=== PATIENT | female | born 1960 | race Caucasian/White ===

== ENCOUNTER 2017-04-13 06:21 | Inpatient (IN) | payer MEDICARE, BC ==
[2017-04-13] MEDS ORDERED: Celecoxib 200 MG Cap PO ONE (06:30)
[2017-04-13] MEDS ORDERED: fentaNYL 25 MCG/HR Transdermal Patch TRDERM SCH ×2 (06:30→08:00)
[2017-04-13] MEDS ORDERED: Acetaminophen 500 MG Tab PO ONE (06:30)
[2017-04-13] MEDS ORDERED: Dextrose 5%-Lactated Ringers 1,000 ML IV SCH ×2 (07:30→15:00)
[2017-04-13] MEDS ORDERED: cefOXitin 2 GM in Sodium Chloride 0.9% 50 ML IV ONE (08:30)
[2017-04-13] MEDS ORDERED: Rocuronium 50 MG/5 ML Vial ONE ×2 (08:46→12:11)
[2017-04-13] MEDS ORDERED: Ondansetron 4 MG/2 ML SDV ONE (08:46)
[2017-04-13] MEDS ORDERED: Propofol 200 MG/20 ML SDV ONE (08:46)
[2017-04-13] MEDS ORDERED: Dexamethasone 4 MG/ML SDV ONE (08:46)
[2017-04-13] MEDS ORDERED: Glycopyrrolate 0.2 MG/ML 5 ML MDV ONE (08:46)
[2017-04-13] MEDS ORDERED: Neostigmine Methylsulfate 1 MG/ML 5 ML Syringe ONE (08:46)
[2017-04-13] MEDS ORDERED: Meropenem 500 MG SDV ONE (09:45)
[2017-04-13] MEDS ORDERED: HYDROmorphone/Normal Saline 15 MG/30 ML PCA IV PRN (09:58)
[2017-04-13] MEDS ORDERED: Naloxone 0.4 MG/ML SDV IV PRN (10:23)
[2017-04-13] MEDS: cefOXitin 2 GM in Sodium Chloride 0.9% 50 ML IV ONE ×2 (11:27→14:19)
[2017-04-13] MEDS ORDERED: Linezolid 200 MG/100 ML Bag IRR ONE (11:28)
[2017-04-13] MEDS ORDERED: Lactated Ringers 1,000 ML ONE (12:00)
[2017-04-13] MEDS ORDERED: Insulin Aspart 100 Units/ML 3 ML Pen SUBCUT SCH (13:15)
[2017-04-13] MEDS ORDERED: Ondansetron 4 MG/2 ML SDV IVPUSH ONE (13:27)
[2017-04-13] MEDS ORDERED: Glucagon,Human Recombinant 1 MG Vial IM PRN (14:46)
[2017-04-13] MEDS ORDERED: 50% Dextrose in Water 50 ML Syringe IVPUSH PRN (14:46)
[2017-04-13] MEDS ORDERED: Glucose Gel 15 GM in 37.5 GM Tube PO PRN (14:46)
[2017-04-13] MEDS ORDERED: Ondansetron 4 MG/2 ML SDV IV PRN (14:59)
[2017-04-13] MEDS: VERIFY FENT PATCH TOP SCH ×2 (15:35→21:54)
[2017-04-13] MEDS: metFORMIN 500 MG Tab PO SCH (16:48)
[2017-04-13] MEDS: ceFAZolin 2 GM in Sodium Chloride 0.9% 50 ML IV SCH ×2 (16:48→23:56)
[2017-04-13] MEDS: Lisinopril 20 MG Tab PO SCH (16:49)
[2017-04-13] MEDS: Insulin Aspart 100 Units/ML 3 ML Pen SUBCUT PRN ×2 (16:52→21:48)
[2017-04-13] MEDS: Simvastatin 20 MG Tab PO SCH (21:46)
[2017-04-14] MEDS ORDERED: Dextrose 5%-Lactated Ringers 1,000 ML IV SCH (07:14)
[2017-04-14] MEDS ORDERED: Acetaminophen/HYDROcodone 325-5 MG Tab PO PRN (07:16)
[2017-04-14] MEDS: ceFAZolin 2 GM in Sodium Chloride 0.9% 50 ML IV SCH (08:22)
--- NOTE | 2017-04-14 08:25 | PN ---
DATE OF SERVICE: 04/14/2017 SUBJECTIVE: Melani Kapadia is postop day 1. She states her pain is controlled. CHERELLE drains have put out 50 and 45 respectively. Blood sugars have been arranging 277, 254, and 242. REVIEW OF SYSTEMS: Remainder of review of systems negative for any pertinent positives or negatives. OBJECTIVE: GENERAL: Melani Kapadia is a 57-year-old female, alert, orientated. SKIN: Warm and dry. Color pale. VITAL SIGNS: TPR 96.8, 58, 14. Blood pressure 104/52. HEENT: Negative. NECK: Supple. HEART: Regular rate and rhythm. LUNGS: Clear. ABDOMEN: Reveals dressing dry and intact. Abdominal binder is on and CHERELLE drains draining 50 and 45 of a pink serous drainage. ASSESSMENT: Panniculectomy and repair of umbilical and incisional hernias for chronic panniculitis and umbilical and incisional hernias. Date of surgery 04/13/2017; surgeon, Chava Esquivel M.D. PLAN: 1. Step-4 gastric bypass diet. 2. Referral to gas meter repair supervisor for evaluation of elevated blood sugars. 3. Decrease IV rate to 100 mL per hour. 4. Saline lock IV if oral intake adequate. 5. [place] 5/325 mg 1 to 2 every 4 hours p.r.n. pain. 6. Discontinue TMR TEACHER. 7. Discontinue continuous pulse oximetry. 8. Teach CHERELLE drain to strip, drain, measure, and record. Drainage dressing off, may shower. We will evaluate p.r.n. or in the a.m. Martha Cross PA-C /[id number]
[2017-04-14] MEDS: metFORMIN 500 MG Tab PO SCH ×2 (08:36→17:42)
[2017-04-14] MEDS: FLUoxetine 20 MG Cap PO SCH (08:37)
[2017-04-14] MEDS: Insulin Aspart 100 Units/ML 3 ML Pen SUBCUT PRN ×3 (08:37→21:56)
[2017-04-14] MEDS: Lisinopril 20 MG Tab PO SCH ×2 (08:37→20:07)
[2017-04-14] MEDS: VERIFY FENT PATCH TOP SCH ×2 (08:37→20:03)
[2017-04-14] MEDS: Simvastatin 20 MG Tab PO SCH (20:04)
[2017-04-15] MEDS ORDERED: Lidocaine 1% 20 ML MDV INJECT STA (06:39)
[2017-04-15] MEDS ORDERED: Lidocaine 1% 50 ML MDV INJECT ONE (06:50)
[2017-04-15] MEDS: Bacitracin Oint 1 GM U/D Packet TOP SCH ×2 (08:11→09:59)
[2017-04-15] MEDS: metFORMIN 500 MG Tab PO SCH (08:11)
[2017-04-15] MEDS ORDERED: Lidocaine 1% 20 ML MDV INJECT ONE (08:45)
[2017-04-15] MEDS ORDERED: Cyanocobalamin (Vitamin B12) 1,000 MCG/ML SDV IM ONE (09:00)
[2017-04-15] MEDS: VERIFY FENT PATCH TOP SCH (09:58)
[2017-04-15] MEDS: FLUoxetine 20 MG Cap PO SCH (10:00)
[2017-04-15] MEDS: Lisinopril 20 MG Tab PO SCH (10:20)
[2017-04-15] MEDS ORDERED: fentaNYL 25 MCG/HR Transdermal Patch TRDERM SCH (10:30)
[2017-04-15 12:31] VITALS: BP 122/64
[2017-04-15] MEDS ORDERED: Lisinopril 20 MG Tab PO SCH (21:00)
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
--- NOTE | 2017-04-19 12:58 | OR ---
DATE OF PROCEDURE: 04/13/2017 PREOPERATIVE DIAGNOSIS: Chronic panniculitis. POSTOPERATIVE DIAGNOSES: 1. Chronic panniculitis. 2. Umbilical hernia. 3. Incisional hernia. OPERATIVE PROCEDURE: 1. Panniculectomy (36710). 2. Repair of umbilical hernia (77917). 3. Repair of incisional hernia (65953). ANESTHESIA: General. INDICATION FOR PROCEDURE: This is a 57-year-old status post Ever-en-Y gastric bypass, presenting with a large abdominal pannus. This was causing some problems with her back, also associated with quite a bit in the way of chronic panniculitis that has been refractory to topical medical management. The plan was to proceed with a panniculectomy. Potential risks of the procedure including bleeding, infection, injury to underlying viscera, as well as possibility of cardiopulmonary, septic, or hemorrhagic complications leading to were discussed, and the patient wishes to proceed. DETAILS OF PROCEDURE: The patient was taken to the operating room and placed in a supine position. After general endotracheal anesthesia was induced, a Ruiz catheter was inserted and the abdomen was prepped and draped. A broad transversely oriented elliptical incision was then made and carried down through the skin and subcutaneous tissue and then a long lengh of the incision down to the level of fascia. Beginning from the right side, the pannus was then reflected off the fascia to near the midline. As one approached the midline, the patient was noted to have an umbilical hernia. This was excised more or less flush with the fascia, along with the overlying pannus, and that then repaired with a [id number] stitch of #2 Vicryl stitch. As one further dissected across the midline toward the left, in what was likely then the camera port for gastric bypass, an incisional hernia was encountered. This likewise was excised, flush with the underlying fascia, and this was likewise then closed with [id number] stitch of #2 Vicryl stitch. The remainder of the fascial attachments to the overlying pannus were then divided, and the specimen was delivered from the field. The area of dissection was inspected. No problems were noted. At this point, two Phillip- Rhodes drains were then placed superior to the incision, one in each direction, and the abdomen irrigated with a meropenem-containing saline solution. The subcutaneous tissue was then approximated with some 3-0 and 4-0 Vicryl stitch and the skin with ronnie. The drains were affixed with some 3-0 Vicryl stitch, and the patient was taken to the recovery room in satisfactory condition. There were no evident complications. Chava Esquivel MD /[id number]
== END 2017-04-15 14:00 | disposition home or self-care (01) | DRG 571 ==
LOC: JP.MS 06:21 → JP.SDS 06:21 → EDSTATUS 07:15 → JP.2SS 12:45
PROVIDERS: ADMIT Surgery; ATTEND Surgery
PROC: 0HB7XZZ Excision of Abdomen Skin, External Approach (ICD-10-PCS; principal; 2017-04-13)
PROC: 0WQF0ZZ Repair Abdominal Wall, Open Approach (ICD-10-PCS; principal; 2017-04-13)
DX: M79.3 Panniculitis, unspecified (principal); K91.2 Postsurgical malabsorption, not elsewhere classified; K42.9 Umbilical hernia without obstruction or gangrene; K43.2 Incisional hernia without obstruction or gangrene; M79.7 Fibromyalgia; E11.9 Type 2 diabetes mellitus without complications; I10 Essential (primary) hypertension; E78.5 Hyperlipidemia, unspecified; Z87.820 Personal history of traumatic brain injury; E53.8 Deficiency of other specified B group vitamins; E55.9 Vitamin D deficiency, unspecified; Z98.84 Bariatric surgery status; Z98.0 Intestinal bypass and anastomosis status; Z79.84 Long term (current) use of oral hypoglycemic drugs; Z88.8 Allergy status to other drugs, medicaments and biological substances; F41.8 Other specified anxiety disorders; F40.10 Social phobia, unspecified
CPT/HCPCS: 82962; 88305; 94762; A9270-GY; J0690; J0694; J1100; J1170; J2020; J2185; J2405; J2704; J2710; J3010; J3420; J7042; J7050; J7120